=== PATIENT | male | born 1970 | race Caucasian/White ===

== ENCOUNTER 2023-10-02 14:28 | Emergency (ER) | payer BC, SELFPAY ==
[2023-10-02 15:19] VITALS: BP 132/88; PULSE 88; TEMP 36.8; O2SAT 98; BMI 25.1
--- NOTE | 2023-10-02 15:22 | ED_ITS ---
HPI - Ear Problem General Chief complaint: Ear Stated complaint: FOREIGN BODY IN EAR Time Seen by Provider: 10/02/23 15:21 History of Present Illness HPI Narrative: Patient is a 53-year-old male who presents to the ER for a retained foreign body in his left ear. He states he removed earbuds from his ear and the rubber end of the earbud got stuck. He has no other associated medical complaints at this time Related Data Allergies Allergy/AdvReac Type Severity Reaction Status Date / Time No Known Drug Allergies Allergy Verified 10/02/23 15:19 Review of Systems ROS Constitutional Denies: fever or chills Ears, nose, mouth, and throat Denies: throat pain or nasal congestion Respiratory Denies: shortness of breath Gastrointestinal Denies: nausea or vomiting Musculoskeletal Denies: back pain or neck pain Integumentary/Breast Denies: rash Hematologic/Lymphatic Denies: easy bruising or easy bleeding Exam Narrative Exam Narrative: Gen.: Awake, alert, in no distress Head: Normocephalic, atraumatic ENT: Moist mucous membranes, black rubber foreign body visualized in the left external canal with no drainage or bleeding Respiratory: No respiratory distress Extremities: Moves extremities equally Psych: Normal mood and affect Neuro: No focal neuro deficit Skin: Warm, dry, intact Constitutional Vital Signs, click to edit/add: Last Vital Signs Temp 98.2 F 10/02/23 15:19 Pulse 88 10/02/23 15:19 Resp 18 10/02/23 15:19 BP 132/88 10/02/23 15:19 Pulse Ox 98 10/02/23 15:19 Course Vital Signs Vital signs: Vital Signs Temperature 98.2 F 10/02/23 15:19 Pulse Rate 88 10/02/23 15:19 Respiratory Rate 18 10/02/23 15:19 Blood Pressure 132/88 10/02/23 15:19 Pulse Oximetry 98 10/02/23 15:19 Temperature 98.2 F 10/02/23 15:19 Pulse Rate 88 10/02/23 15:19 Respiratory Rate 18 10/02/23 15:19 Blood Pressure 132/88 10/02/23 15:19 Pulse Oximetry 98 10/02/23 15:19 Medical Decision Making MDM Narrative Medical decision making narrative: Forceps were used to easily remove the foreign body from the left external canal in triage. Patient discharged to follow-up with PCP. Return to the ER if symptoms change or worsen SUPERVISED APC VISIT, PHYSICIAN ATTESTATION: Based on the medical record the care appears appropriate. ? Medical Records Medical records reviewed: Yes I reviewed the patient's medical records Discharge Plan Discharge Stand Alone Forms: Portal Instructions Chief Complaint: Ear Clinical Impression: Acute foreign body of left ear Patient Disposition: Home, Self-Care Time of Disposition Decision: 15:22 Condition: Good Print Language: [place]ian Instructions: Ear Foreign Body (ED) Referrals: Physician,Non-Staff, MD [Primary Care Provider] - 1 week
== END 2023-10-02 15:25 | disposition home or self-care (01) ==
PROVIDERS: Emergency Provider Emergency Medicine
DX: T16.2XXA Foreign body in left ear, initial encounter (principal); W44.G1XA Audio device entering into or through a natural orifice, initial encounter
CPT/HCPCS: 69200; 99281